=== PATIENT | male | born 1955 | race Caucasian/White ===

== ENCOUNTER 2021-05-27 22:37 | Emergency (ER) | payer OTHER ==
[2021-05-27 23:12] LABS: Absolute Neutrophil Ct (ANC) 4.93 (1.4-6.9); Basophil (Absolute #) 0 (0-0.4); Eosinophil % 5.7 % (0.00-5.0); Eosinophil (Absolute #) 0.44 (0-0.5); Hematocrit 43.6 % (42-50); Hemoglobin 14.4 gm/dl (12.5-18.0); Lymphocyte (Absolute #) 1.76 (1.0-4.6); Lymphocytes % 22.9 % (24.0-44.0); Mean Cell Volume 90.1 fl (78-100); Mean Corpuscular Hemoglobin 29.8 pg (26-32); Mean Platelet Volume 9.6 fl (7.5-11.0); Monocyte (Absolute #) 0.56 (0.0-1.3); Monocytes % 7.3 % (0.0-12.0); Neutrophil % 64.1 % (36.0-66.0); Platelet Count 207 K/mm3 (150-450); Red Blood Count 4.84 M/mm3 (4.1-5.6); Red Cell Distribution Width 14.2 % (11.5-14.0); White Blood Count 7.7 K/mm3 (4.0-10.5)
[2021-05-27 23:19] LABS: INR 1.07 (0.8-3.0); PROTIME 12.6 SECONDS (9.4-12.5)
[2021-05-27 23:22] LABS: PTT 32.8 SECONDS (25.1-36.5)
[2021-05-27 23:32] LABS: ALKALINE PHOSPHATASE 67 U/L (38-126); ANION GAP 9.3 MEQ/L (5-15); BLOOD UREA NITROGEN 18 mg/dL (9-20); CHLORIDE 100 mmol/L (98-107); Calcium 9.3 mg/dL (8.4-10.2); Carbon Dioxide 29 mmol/L (22-30); Creatinine 1 1.04 mg/dL (0.66-1.25); EST GLOMERULAR FILTRATION RATE > 60.0 ML/MIN; Glucose 93 mg/dL (74-106); NT PRO BNP 236 pg/mL (0-900); Potassium 3.9 mmol/L (3.5-5.1); SGOT/AST 31 U/L (17-59); SGPT/ALT 18 U/L (0-50); SODIUM 135 mmol/L (137-145)
--- NOTE | 2021-05-27 23:32 | ERPHSYRPT ---
- History of Present Illness Source: patient Exam Limitations: other (Poor historian) Patient Subjective Stated Complaint: pt states he has been increasingly short of breath today. started getting short of breath approx 4 days ago and has not had an inhaler to use at home. Triage Nursing Assessment: pt alert and oriented, answers questions approp. pt restless in bed. speech rapid. skin warm and dry. respirations nonlabored. lung sounds diminished with exp wheezing throughout. Physician History: 65 yo wm who smokes 2 ppd presents w dyspnea x 4 days which is worse tonight. Dyspnea worse w exertion. EMS gave 125mg IV Solumedrol/Duoneb in route w improvement. Pt states that he has a mild cough but denies fever/chest pain/nausea/vomiting/melena/hematochezia. He has had diarrhea x1. Pt has run out of all his meds. He has received first dose of CV19 vaccine. Timing/Duration: day(s) (4 days) Activities at Onset: rest Severity of Dyspnea-Max: moderate Severity of Dyspnea-Current: mild Possible Cause: occasional episodes Modifying Factors: Improves With: exertion Associated Symptoms: anxiety, cough, No chest pain/discomfort, No edema, No fever, No insomnia, No loss of appetite, No lightheadedness, No wheezing, No weakness, No ankle swelling, No chills, No hemoptysis, No calf pain, No dizziness, No heaviness, No heart racing, No lightheadedness, No leg swelling, No muscle spasms feet, No muscle spasms hands, No painful breathing, No productive cough, No sweating, No tightness, No tingling face, No tingling hands Allergies/Adverse Reactions: No Known Drug Allergies Allergy (Verified 05/27/21 23:13) Hx Tetanus, Diphtheria Vaccination/Date Given: Yes Hx Influenza Vaccination/Date Given: No Hx Pneumococcal Vaccination/Date Given: No Immunizations Up to Date: Yes Travel Risk - International Travel Have you traveled outside of the country in past 3 weeks: No - Coronavirus Screening Are you exhibiting any of the following symptoms?: No Close contact with a COVID-19 positive Pt in past 14-21 Days: No - Vaccine Status Have you recieved a Covid-19 vaccination: Yes 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 - Vaccination Dates Date of 2cond Vaccination (if applicable): na - Review of Systems Constitutional: No Symptoms, Malaise Eyes: No Symptoms Ears, Nose, & Throat: No Symptoms Respiratory: No Symptoms, Cough, Dyspnea, Dyspnea on Exertion (EDWARDS) Cardiac: No Symptoms Abdominal/Gastrointestinal: No Symptoms, Diarrhea (x1) Genitourinary Symptoms: No Symptoms Musculoskeletal: No Symptoms Skin: No Symptoms Neurological: No Symptoms Psychological: No Symptoms Endocrine: No Symptoms Hematologic/Lymphatic: No Symptoms Immunological/Allergic: No Symptoms - Past Medical History Pertinent Past Medical History: Yes Neurological History: No Pertinent History ENT History: No Pertinent History Cardiac History: Hypertension Respiratory History: Asthma, COPD Endocrine Medical History: No Pertinent History Musculoskeletal History: No Pertinent History GI Medical History: No Pertinent History History: No Pertinent History Psycho-Social History: No Pertinent History Male Reproductive Disorders: No Pertinent History - Past Surgical History Past Surgical History: No Neuro Surgical History: No Pertinent History Cardiac: No Pertinent History Respiratory: No Pertinent History Gastrointestinal: No Pertinent History Genitourinary: No Pertinent History Musculoskeletal: No Pertinent History Male Surgical History: No Pertinent History - Social History Smoking Status: Current every day smoker How long have you smoked: >40y Exposure to second hand smoke: Yes Drug Use: none Patient Lives Alone: No Significant Family History: no pertinent family hx - Nursing Vital Signs Nursing Vital Signs: Initial Vital Signs Temperature 98.3 F 05/27/21 22:38 Pulse Rate 89 05/27/21 22:38 Respiratory Rate 20 05/27/21 22:38 Blood Pressure 144/88 05/27/21 22:38 O2 Sat by Pulse Oximetry 95 05/27/21 22:38 Pain Scale Pain Intensity 8 Hypertensive - Physical Exam General Appearance: no apparent distress Eye Exam: PERRL/EOMI, eyes nml inspection Ears, Nose, Throat Exam: hearing grossly normal, normal ENT inspection, normal pharynx, No abnormal TM (R), No abnormal TM (L) Neck Exam: normal inspection, non-tender, supple, full range of motion, No Brudzinski, No Kernig's, No meningismus, No carotid bruit Respiratory Exam: airway intact, diminished breath sounds, wheezing, No respiratory distress Cardiovascular/Chest Exam: normal heart sounds, regular rate/rhythm, normal peripheral pulses, No murmur Abdominal/Gastrointestinal Exam: soft, normal bowel sounds, No tenderness Extremity Exam: non-tender, normal range of motion, normal inspection, normal capillary refill Peripheral Pulses Exam: carotid (R): 2+, carotid (L): 2+ Neurologic Exam: alert, oriented x 3, 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, 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, normal mood/affect, nml cerebellar function, nml station & gait, sensation nml Skin Exam: normal color, warm, dry Lymphatic Exam: No adenopathy SpO2 Interpretation: normal SpO2: 95 O2 Delivery: Room Air - Course Nursing assessment & vital signs reviewed: Yes EKG Interpreted by Me: RATE (NSR/R90/Normal QT-QTc/Tall T waves/No acute ST changes) Ordered Tests: Active Orders 24 hr Category Date Time Status 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0-10.5) K/mm3 RBC (4.1-5.6) M/mm3 Hgb (12.5-18.0) gm/dl Hct (42-50) % MCV (78-100) fl MCH (26-32) pg MCHC (32-36) g/dl RDW (11.5-14.0) % Plt Count (150-450) K/mm3 MPV (7.5-11.0) fl Gran % (36.0-66.0) % Eos # (Auto) (0-0.5) Absolute Lymphs (auto) (1.0-4.6) Absolute Monos (auto) (0.0-1.3) Lymphocytes % (24.0-44.0) % Monocytes % (0.0-12.0) % Eosinophils % (0.00-5.0) % Basophils % (0.0-0.4) % Absolute Granulocytes (1.4-6.9) Basophils # (0-0.4) PT 12.6 H (9.4-12.5) SECONDS INR 1.07 (0.8-3.0) APTT 32.8 (25.1-36.5) SECONDS Sodium 135 L (137-145) mmol/L Potassium 3.9 (3.5-5.1) mmol/L Chloride 100 (98-107) mmol/L Carbon Dioxide 29 (22-30) mmol/L Anion Gap 9.3 (5-15) MEQ/L BUN 18 (9-20) mg/dL Creatinine 1.04 (0.66-1.25) mg/dL Estimated GFR > 60.0 ML/MIN Glucose 93 (74-106) mg/dL Calcium 9.3 (8.4-10.2) mg/dL Total Bilirubin 0.70 (0.2-1.3) mg/dL AST 31 (17-59) U/L ALT 18 (0-50) U/L Alkaline Phosphatase 67 (38-126) U/L Troponin I < 0.012 (0.000-0.034) ng/mL NT-Pro-B Natriuret Pep 236 (0-900) pg/mL Serum Total Protein 7.0 (6.3-8.2) g/dL Albumin 4.0 (3.5-5.0) g/dL 05/27/21 Range/Units 23:00 WBC 7.7 (4.0-10.5) K/mm3 RBC 4.84 (4.1-5.6) M/mm3 Hgb 14.4 (12.5-18.0) gm/dl Hct 43.6 (42-50) % MCV 90.1 (78-100) fl MCH 29.8 (26-32) pg MCHC 33.0 (32-36) g/dl RDW 14.2 H (11.5-14.0) % Plt Count 207 (150-450) K/mm3 MPV 9.6 (7.5-11.0) fl Gran % 64.1 (36.0-66.0) % Eos # (Auto) 0.44 (0-0.5) Absolute Lymphs (auto) 1.76 (1.0-4.6) Absolute Monos (auto) 0.56 (0.0-1.3) Lymphocytes % 22.9 L (24.0-44.0) % Monocytes % 7.3 (0.0-12.0) % Eosinophils % 5.7 H (0.00-5.0) % Basophils % 0.0 (0.0-0.4) % Absolute Granulocytes 4.93 (1.4-6.9) Basophils # 0 (0-0.4) PT (9.4-12.5) SECONDS INR (0.8-3.0) APTT (25.1-36.5) SECONDS Sodium (137-145) mmol/L Potassium (3.5-5.1) mmol/L Chloride (98-107) mmol/L Carbon Dioxide (22-30) mmol/L Anion Gap (5-15) MEQ/L BUN (9-20) mg/dL Creatinine (0.66-1.25) mg/dL Estimated GFR ML/MIN Glucose (74-106) mg/dL Calcium (8.4-10.2) mg/dL Total Bilirubin (0.2-1.3) mg/dL AST (17-59) U/L ALT (0-50) U/L Alkaline Phosphatase (38-126) U/L Troponin I (0.000-0.034) ng/mL NT-Pro-B Natriuret Pep (0-900) pg/mL Serum Total Protein (6.3-8.2) g/dL Albumin (3.5-5.0) g/dL - Progress Progress: improved Progress Note: 05/27/21 23:50 Pt refused to stay for 3 hours troponin, states that he is much better. Risks explained to pt, including [place] and all complications of [place] 05/27/21 23:51 Pt refused Covid19 swab 05/28/21 00:24 05/28/21 01:31 05/28/21 01:32 Counseled pt/family regarding: lab results, diagnosis, need for follow-up, rad results - Departure Departure Disposition: Home Clinical Impression: COPD exacerbation, Bronchitis Condition: Stable Critical Care Time: No Referrals: NATE BILL [NON-STAFF PHY W/O PRIVILEGES] - Instructions: Chronic Obstructive Pulmonary Disease, Shortness of Breath (Dyspnea) (DC), Exacerbation of COPD (DC) Additional Instructions: Use your nebulizer or inhaler every 4 hours as needed Prednisone twice a day for 5 days Quit smoking Return to ER for increasing shortness of breath/Chest pain/Temperature greater than 100.5 Prescriptions: Albuterol Sulfate [Proventil Hfa] 6.7 gm IH Q4HPRN PRN #1 inh PRN Reason: Shortness Of Breath/Wheezing Prednisone 10 mg [Deltasone 10 mg] 10 mg PO BID 5 Days #10 tablet Doxycycline Monohydrate 100 mg PO BID 7 Days #14 tablet
[2021-05-27 23:49] VITALS: BP 130/88; PULSE 83
[2021-05-27 23:50] VITALS: O2SAT 95
--- NOTE | 2021-05-28 08:52 | XRAY ---
Indication: Dyspnea. Comparison: March 04, 2018. Portable chest remains hyperinflated and clear. Heart not enlarged. Bony thorax intact again with mild degenerative changes. No new/acute abnormalities.
== END 2021-05-28 00:21 | disposition home or self-care (01) ==
LOC: ED 22:37
DX: J44.0 Chronic obstructive pulmonary disease with (acute) lower respiratory infection (principal)
CPT/HCPCS: 36000; 36415; 71045; 80053; 83880; 84484; 85025; 85610; 85730; 93005; 93041; 99284

== ENCOUNTER 2021-11-14 00:24 | Emergency (ER) | payer OTHER, MEDICARE ==
[2021-11-14] MEDS ORDERED: TORAdol 30 mg Injection ONE (00:55)
[2021-11-14] MEDS: TORAdol 30 mg Injection IV ONE (00:57)
[2021-11-14 02:04] VITALS: BP 143/83; PULSE 77; O2SAT 95
--- NOTE | 2021-11-14 02:47 | ERPHSYRPT ---
- History of Present Illness Time Seen by Provider: 11/14/21 00:40 Source: patient Exam Limitations: no limitations Patient Subjective Stated Complaint: pt states "I have had this pain in my leg for the past week. I thought it would go away but it didn't." Triage Nursing Assessment: pt ambulated into the er with assist of cane; pt is axo x4; c/o rt leg pain; pt states 10/10 pain to RLE; pt states that he has taken 8 tylenol today with no relief; pt denies any trauma or injurt to RLE; pt states prior to arrival his rt leg gave out; pt has good cap refill to RLE; strong pedal pulse to rt foot; pt has tenderness to rt groin; pt states that he has not been able to afford his HTN medication; hypertension Physician History: Patient is a 66-year-old male presents to emergency department with complaints of pain to his right hip for the past 1 week. Patient states pain is worse when he bears weight pain improves with rest. Pain rated 10 out of 10 while weightbearing. Pain improved with rest. No trauma. No fever. No nausea vomiting or diaphoresis. No abdominal pain. No chest pain. No numbness tingling or weakness. No saddle anesthesia. No back pain. Symptoms are constant. Symptoms are moderate in intensity. Patient in no acute distress. Patient voices no other complaints or concerns at this time. Method of Injury: other (No observed injury) Occurred: last week Quality: constant Severity of Pain-Max: moderate Severity of Pain-Current: mild Lower Extremities Pain: hip: right Modifying Factors: Improves With: movement (Weightbearing) Associated Symptoms: none Allergies/Adverse Reactions: No Known Drug Allergies Allergy (Verified 11/14/21 00:25) Hx Tetanus, Diphtheria Vaccination/Date Given: No Hx Influenza Vaccination/Date Given: No Hx Pneumococcal Vaccination/Date Given: No Travel Risk - International Travel Have you traveled outside of the country in past 3 weeks: No - Coronavirus Screening Are you exhibiting any of the following symptoms?: No Close contact with a COVID-19 positive Pt in past 14-21 Days: No - Vaccine Status Have you recieved a Covid-19 vaccination: Yes 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 - Vaccination Dates Date of 2cond Vaccination (if applicable): unknown - Review of Systems Constitutional: No Symptoms, No Fever, No Chills Eyes: No Symptoms Ears, Nose, & Throat: No Symptoms Respiratory: No Symptoms, No Cough, No Dyspnea Cardiac: No Symptoms, No Chest Pain, No Edema, No Syncope Abdominal/Gastrointestinal: No Symptoms, No Abdominal Pain, No Nausea, No Vomiting, No Diarrhea Genitourinary Symptoms: No Symptoms, No Dysuria Musculoskeletal: No Symptoms, No Back Pain, No Neck Pain Skin: No Symptoms, No Rash Neurological: No Symptoms, No Dizziness, No Focal Weakness, No Sensory Changes Psychological: No Symptoms Endocrine: No Symptoms Hematologic/Lymphatic: No Symptoms Immunological/Allergic: No Symptoms All Other Systems: Reviewed and Negative - Past Medical History Pertinent Past Medical History: Yes Neurological History: No Pertinent History ENT History: No Pertinent History Cardiac History: Hypertension Respiratory History: Asthma, COPD Endocrine Medical History: No Pertinent History Musculoskeletal History: No Pertinent History GI Medical History: No Pertinent History History: No Pertinent History Psycho-Social History: No Pertinent History Male Reproductive Disorders: No Pertinent History - Past Surgical History Past Surgical History: No Neuro Surgical History: No Pertinent History Cardiac: No Pertinent History Respiratory: No Pertinent History Gastrointestinal: No Pertinent History Genitourinary: No Pertinent History Musculoskeletal: No Pertinent History Male Surgical History: No Pertinent History - Social History Smoking Status: Current every day smoker How long have you smoked: >40y Exposure to second hand smoke: Yes Drug Use: none Patient Lives Alone: No Significant Family History: no pertinent family hx - Nursing Vital Signs Nursing Vital Signs: Initial Vital Signs Temperature 97.6 F 11/14/21 00:27 Pulse Rate 86 11/14/21 00:27 Respiratory Rate 18 11/14/21 00:27 Blood Pressure 180/101 11/14/21 00:27 O2 Sat by Pulse Oximetry 96 11/14/21 00:27 Pain Scale Pain Intensity 4 - Physical Exam General Appearance: no apparent distress, alert Eyes, Ears, Nose, Throat Exam: normal ENT inspection, TMs normal, pharynx normal, moist mucous membranes Neck Exam: normal inspection, non-tender, supple, full range of motion Cardiovascular/Respiratory Exam: chest non-tender, normal breath sounds, regular rate/rhythm, no respiratory distress Gastrointestinal/Abdominal Exam: non-tender, guarding Back Exam: normal inspection, normal range of motion, No vertebral tenderness Hips Exam: right: pain (Rt. hip pain to log roll and heel tap), other (Right lower extremities neurovascular intact distally. Compartments are soft. Cap refill less than 2 seconds.) Legs Exam: bilateral leg: non-tender, normal inspection, normal range of motion, no evidence of injury Knees Exam: bilateral knee: non-tender, normal inspection, normal range of motion, no evidence of injury Ankle Exam: bilateral ankle: non-tender, normal inspection, normal range of motion, no evidence of injury Foot Exam: bilateral foot: non-tender, normal inspection, normal range of motion, no evidence of injury Neuro/Tendon Exam: normal sensation, normal motor functions, normal tendon functions Mental Status Exam: alert, oriented x 3, cooperative Skin Exam: normal color, warm, dry SpO2 Interpretation: normal SpO2: 95 O2 Delivery: Room Air - Course Nursing assessment & vital signs reviewed: Yes Ordered Tests: Active Orders 24 hr Category Date Time Status AMA [Release AMA] OM.NOW Care 11/14/21 02:40 Ordered PELVIS WITHOUT CONTRAST [CT] Stat Exams 11/14/21 00:53 Taken Medication Summary Discontinued Medications Generic Name Dose Route Start Last Admin Trade Name Bette PRN Reason Stop Dose Admin Ketorolac Tromethamine 30 mg 11/14/21 00:52 11/14/21 00:57 Ketorolac Tromethamine 30 Mg/Ml Inj IV 11/14/21 00:53 30 mg STAT ONE Administration Ketorolac Tromethamine Confirm 11/14/21 00:55 Ketorolac Tromethamine 30 Mg/Ml Inj Administered 11/14/21 00:56 Dose 30 mg .ROUTE .STK-MED ONE - Progress Progress: improved Progress Note: 11/14/21 02:48 Patient reassessed. Pain improved after administration of Toradol. A CT scan of the pelvis to observe the right hip was ordered. Patient refused to stay for the result. Patient states his was in the parking lot and he needed to leave. Patient states he will follow up with Dr. Lamar within 48 hours for evaluation. Patient left AMA. Patient is of sound mind. Patient is appropriate to make informed and independent medical decisions. Patient understands that leaving AGAINST MEDICAL ADVICE can result in delayed diagnosis, increased risk of morbidity, mortality, short and long-term disability including . In spite of these risks, patient has decided to leave AGAINST MEDICAL ADVICE. Patient understands that he may return to our ED at any point if he reconsiders. Patient agrees to follow-up with his primary care doctor within 48 hours for reevaluation. Patient voices no other complaints or concerns at this time. We will release patient AGAINST MEDICAL ADVICE per their request. Portions of this note were created with voice recognition technology. There may be grammatical, spelling, punctuation or sound alike errors Counseled pt/family regarding: diagnosis, need for follow-up, rad results - Departure Departure Disposition: AMA Clinical Impression: Hip pain Condition: Stable Critical Care Time: No Referrals: EVELINA LAMAR [Primary Care Provider] - Follow up/PCP as directed Additional Instructions: Discharge/Care Plan ALIDA ZELAYA was seen on 11/14/21 in the Emergency Room. The patient was counseled regarding Diagnosis,Lab results, Imaging studies, need for follow up and when to return to the Emergency Room. Prescriptions given: Discharge Note I have spoken with the patient and/or caregivers. I have explained the patient's condition, diagnosis and treatment plan based on the information available to me at this time. I have answered the patient's and/or caregiver's questions and addressed any concerns. The patient and/or caregivers have as good understanding of the patient's diagnosis, condition and treatment plan as can be expected at this point. The vital signs have been stable. The patient's condition is stable and appropriate for discharge from the emergency department. The patient will pursue further outpatient evaluation with the primary care physician or other designated or consulting physician as outlined in the discharge instructions. The patient and/or caregivers are agreeable to this plan of care and follow-up instructions have been explained in detail. The patient and/or caregivers have received these instruction. The patient/and or caregivers are aware that any significant change in condition or worsening of symptoms should prompt an immediate return to this or the closest emergency department or call 911.
--- NOTE | 2021-11-14 09:27 | XRAY ---
Indication: Right hip pain 1 week. Fracture. Multiple contiguous axial images obtained through the pelvis with special attention to the osseous structures. Sagittal and coronal reformatted images obtained. Comparison: None Osseous structures are demineralized. Mild/moderate degenerative changes of both hips as evidenced by joint space narrowing, bony sclerosis, and tiny subcortical cysts. No acute fracture, suspicious bony lesions, or osseous destructive process. Mild degenerative changes of both SI joints and visualized lower lumbar spine. Visualized noncontrasted soft tissues demonstrates mild scattered vascular calcifications and sigmoid diverticulosis. No suspicious solid/cystic soft tissue mass or abnormal fluid collection. Impression: 1. Negative acute fracture/dislocation. 2. Osteopenia and degenerative changes as detailed. 3. Incidental arteriosclerotic disease and sigmoid diverticulosis. Comment: Preliminary interpretation made by [facility]. No critical discrepancy.
== END 2021-11-14 02:45 | disposition left against medical advice (07) ==
LOC: ED 00:24
DX: M25.551 Pain in right hip (principal); I10 Essential (primary) hypertension; J44.9 Chronic obstructive pulmonary disease, unspecified; Z72.0 Tobacco use
CPT/HCPCS: 72192; 96374; 99284; J1885

== ENCOUNTER 2024-10-30 21:24 | Emergency (ER) | payer MEDICARE, OTHER ==
[2024-10-30 22:04] VITALS: RESP 22; TEMP 98.8; O2SAT 97
--- NOTE | 2024-10-30 22:28 | ERPHSYRPT ---
- History of Present Illness Time Seen by Provider: 10/30/24 22:02 Source: patient Exam Limitations: clinical condition Patient Subjective Stated Complaint: pt states that he was carving a wood and cut his hand Triage Nursing Assessment: pt ambulated into the er; pt is axo x4; pt is restless, mumbling; c/o laceration; laceration measures 3 cm x 0.5 cm to left index finger; moderate bleeding present to left finger; skin PDW; no respiratory distress present; tachycardic Severity: mild Allergies/Adverse Reactions: No Known Drug Allergies Allergy (Verified 10/30/24 21:49) Hx Tetanus, Diphtheria Vaccination/Date Given: Yes Hx Influenza Vaccination/Date Given: No Hx Pneumococcal Vaccination/Date Given: No Travel Risk - International Travel Have you traveled outside of the country in past 3 weeks: No - Emerging Infectious Disease Are you exhibiting symptoms associated with any current EIDs: No - Review of Systems Constitutional: No Symptoms Eyes: No Symptoms Ears, Nose, & Throat: No Symptoms Respiratory: No Symptoms Cardiac: No Symptoms Abdominal/Gastrointestinal: No Symptoms Genitourinary Symptoms: No Symptoms Musculoskeletal: No Symptoms - Past Medical History Pertinent Past Medical History: Yes Neurological History: No Pertinent History ENT History: No Pertinent History Cardiac History: Hypertension Respiratory History: Asthma, COPD Endocrine Medical History: No Pertinent History Musculoskeletal History: No Pertinent History GI Medical History: No Pertinent History History: No Pertinent History Psycho-Social History: No Pertinent History Male Reproductive Disorders: No Pertinent History - Past Surgical History Past Surgical History: No Neuro Surgical History: No Pertinent History Cardiac: No Pertinent History Respiratory: No Pertinent History Gastrointestinal: No Pertinent History Genitourinary: No Pertinent History Musculoskeletal: No Pertinent History Male Surgical History: No Pertinent History Significant Family History: no pertinent family hx - Social History Smoking Status: Current every day smoker How long have you smoked: >40y Exposure to second hand smoke: Yes Drug Use: marijuana - Social Determinants of Health Will the patient participate in the screening: Yes Do you worry about a steady place to live?: Yes Do you have any problems with any of the following?: No known problems In the past 12 months,have you had to go without utilities?: Yes Transportation Issues: Yes Has anyone in your support network made you feel unsafe?: Yes Have you or anyone in your house had to go w/o enough food: Yes Comment: pt states that he is homeless - Nursing Vital Signs Nursing Vital Signs: Initial Vital Signs Temperature 98.8 F 10/30/24 21:49 Pulse Rate 101 H 10/30/24 21:49 Respiratory Rate 22 10/30/24 21:49 Blood Pressure 134/91 10/30/24 21:49 O2 Sat by Pulse Oximetry 97 10/30/24 21:49 Pain Scale Pain Intensity 9 - Physical Exam General Appearance: no apparent distress Eye Exam: PERRL/EOMI Ears, Nose, Throat Exam: normal ENT inspection Respiratory Exam: normal breath sounds Cardiovascular Exam: regular rate/rhythm Gastrointestinal/Abdomen Exam: soft Skin Exam: laceration (1.2 cm laceration over the left hand extensor surface at the base of the index finger ) SpO2: 97 Procedures - Laceration/Wound Repair Left Posterior Hand Time of Procedure: 22:17 Wound Location: Left Wound Length (cm): 1.2 Wound's Depth, Shape: superficial Wound Explored: clean Irrigated: No Hibiclens Prep: Yes Anesthesia: local, 1% Lidocaine Volume Anesthetic (ccs): 5 Wound Debrided: minimal Wound Repaired With: sutures Suture Size/Type: 3-0, prolene Number of Sutures: 5 Layer Closure?: No Sterile Dressing Applied?: No Splint Applied?: No Sling Applied?: No Ordered Tests: Active Orders 24 hr Category Date Time Status ACO SDOH Referral ONCE Cons 10/30/24 22:04 Active - Progress Progress Note: Patient was seen and evaluated for laceration to the left hand he states he cut it accidentally while cooking with a kitchen knife he denies any other injury he denies any numbness or tingling this area was cleaned with Hibiclens and then local anesthesia with 1% lidocaine administered and the laceration reapproximated using a running interlocking suture of 3-0 Prolene with good approximation and hemostasis patient tolerated the procedure well and has good range of motion before and after the procedure. Patient was given wound care precautions he will be discharged home with Keflex 10/30/24 22:26 Medical Desision Making - Discussion of managment Agreed on:: need for follow-up Will see patient: In office - Departure Departure Disposition: Home Clinical Impression: Laceration of hand Condition: Stable Critical Care Time: No Referrals: EVELINA DAY [Primary Care Provider] - Follow up/PCP as directed Prescriptions: Cephalexin Mh 500 mg [Keflex 500 mg] 500 mg PO BID #14 cap
[2024-10-30 22:44] VITALS: BP 113/84; PULSE 97
== END 2024-10-30 23:07 | disposition home or self-care (01) ==
LOC: ED 21:24
DX: S61.412A Laceration without foreign body of left hand, initial encounter (principal); W26.0XXA Contact with knife, initial encounter; Y93.G1 Activity, food preparation and clean up; I10 Essential (primary) hypertension; Z79.899 Other long term (current) drug therapy; Z72.0 Tobacco use; Z59.00 Homelessness unspecified; Z59.12 Inadequate housing utilities; Z59.82 Transportation insecurity; Z59.48 Other specified lack of adequate food; Z58.89 Other problems related to physical environment
CPT/HCPCS: 12001; 99283

== ENCOUNTER 2024-12-28 17:28 | Emergency (ER) | payer OTHER ==
--- NOTE | 2024-12-28 17:47 | ERPHSYRPT ---
- History of Present Illness Time Seen by Provider: 12/28/24 17:47 Source: patient, EMS, old records Exam Limitations: no limitations Physician History: This is a 69-year-old white male patient of Dr. Lamar who presents to the emergency department by the paramedics after complaining that he fell from the height of a chair (he states 12 inches) when attempting to sit down. After he fell, he has had severe lower back pain, bilateral hip pain and bilateral knee pain. He has a history of alcohol abuse but he denies illicit drug use and he denies alcohol use. He specifically states he did not hit his head. He has no complaints of pain anywhere else. Patient arrives on a backboard with a c- collar in place. Patient has a history of hypertension, COPD and asthma. He is not taking any of his medications. He denies chest pain and he denies shortness of breath. Occurred: just prior to arrival Reason for Fall: unknown (Unknown but it appears he missed the seat he was trying to sit on) Injuries/Pain Location: pelvis (Bilateral hips), lower extremity (Bilateral knees), lower (Lumbar region of his back) Loss of Consciousness: no loss of consciousness Severity of Pain-Max: moderate Severity of Pain-Current: mild Modifying Factors: Improves With: movement Associated Symptoms (Fall): back pain (Lumbar level), extremity injury (Bilateral knees and bilateral hips) Allergies/Adverse Reactions: No Known Drug Allergies Allergy (Verified 10/30/24 21:49) Home Medications: No Reportable Medications [No Reported Medications] 12/28/24 [History] Hx Tetanus, Diphtheria Vaccination/Date Given: Yes Hx Influenza Vaccination/Date Given: No Hx Pneumococcal Vaccination/Date Given: No Travel Risk - International Travel Have you traveled outside of the country in past 3 weeks: No - Emerging Infectious Disease Are you exhibiting symptoms associated with any current EIDs: No - Review of Systems Constitutional: No Symptoms Eyes: No Symptoms Ears, Nose, & Throat: No Symptoms Respiratory: No Symptoms Cardiac: No Symptoms Abdominal/Gastrointestinal: No Symptoms Genitourinary Symptoms: No Symptoms Musculoskeletal: Back Pain (Low back pain lumbar region), Fall, Joint Pain (Bilateral hips and bilateral knees) Skin: No Symptoms Neurological: No Symptoms Psychological: No Symptoms Endocrine: No Symptoms Hematologic/Lymphatic: No Symptoms Immunological/Allergic: No Symptoms All Other Systems: Reviewed and Negative - Past Medical History Pertinent Past Medical History: Yes Neurological History: No Pertinent History ENT History: No Pertinent History Cardiac History: Hypertension Respiratory History: Asthma, COPD Endocrine Medical History: No Pertinent History Musculoskeletal History: No Pertinent History GI Medical History: No Pertinent History History: No Pertinent History Psycho-Social History: No Pertinent History Male Reproductive Disorders: No Pertinent History - Past Surgical History Past Surgical History: No Neuro Surgical History: No Pertinent History Cardiac: No Pertinent History Respiratory: No Pertinent History Gastrointestinal: No Pertinent History Genitourinary: No Pertinent History Musculoskeletal: No Pertinent History Male Surgical History: No Pertinent History Significant Family History: no pertinent family hx - Social History Smoking Status: Current every day smoker How long have you smoked: >40y Exposure to second hand smoke: Yes Drug Use: marijuana - Social Determinants of Health Will the patient participate in the screening: Yes Do you worry about a steady place to live?: Yes In the past 12 months,have you had to go without utilities?: Yes Transportation Issues: Yes Has anyone in your support network made you feel unsafe?: Yes Have you or anyone in your house had to go w/o enough food: Yes Comment: pt states that he is homeless - Nursing Vital Signs Nursing Vital Signs: Initial Vital Signs Temperature 98.6 F 12/28/24 17:29 Pulse Rate 96 H 12/28/24 17:29 Respiratory Rate 18 12/28/24 17:29 Blood Pressure 162/91 12/28/24 17:29 O2 Sat by Pulse Oximetry 94 L 12/28/24 17:29 Pain Scale Pain Intensity 8 - Zach Coma Score Best Eye Response (Zach): (4) open spontaneously Best Verbal Response (Martelle): (5) oriented Best Motor Response (Zach): (6) obeys commands Martelle Total: 15 - Physical Exam General Appearance: no apparent distress, alert, anxiety Head Injury: no evidence of injury Eye Exam: PERRL/EOMI, eyes nml inspection ENT Exam: airway nml, nml ext.inspection Neck Exam: supple, trachea midline, full range of motion, normal alignment, normal inspection, c-collar in place, other (I cleared his cervical spine clinically. He has no pain when palpating the cervical vertebrae or the pair spinous muscles bilaterally.) Respiratory/Chest Exam: normal breath sounds, No chest tenderness, No respiratory distress, No ecchymosis, No crepitus Cardiovascular Exam: normal heart sounds, regular rate/rhythm Gastrointestinal Exam: soft, normal bowel sounds, No tenderness, No guarding Rectal Exam: No not done Back Exam: normal inspection, normal range of motion, muscle spasm (There is bilateral lumbar level paraspinous muscle tenderness to palpation), No CVA tenderness, No vertebral tenderness (No vertebral tenderness to palpation) Extremity Exam: normal inspection, normal range of motion, pelvis stable, No deformities Neurologic Exam: alert, oriented x 3, 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, 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, sensation nml Skin Exam: normal color, warm, dry SpO2 Interpretation: normal O2 Delivery: Room Air - Course Nursing assessment & vital signs reviewed: Yes Ordered Tests: Active Orders 24 hr Category Date Time Status AMA [Release AMA] OM.NOW Care 12/28/24 19:32 Ordered KNEE (1 OR 2 VIEW) Stat Exams 12/28/24 17:42 Taken KNEE (1 OR 2 VIEW) Stat Exams 12/28/24 17:42 Taken LUMBAR SPINE W/O [CT] Stat Exams 12/28/24 17:40 Taken PELVIS WITHOUT CONTRAST [CT] Stat Exams 12/28/24 17:41 Taken Medication Summary Discontinued Medications Generic Name Dose Route Start Last Admin Trade Name Armaanq PRN Reason Stop Dose Admin Orphenadrine Citrate 60 mg 12/28/24 17:59 12/28/24 18:11 Orphenadrine Citrate 60 Mg/2 Ml Vial IM 12/28/24 18:00 Not Given STAT ONE Orphenadrine Citrate 60 mg 12/28/24 18:04 12/28/24 18:06 Orphenadrine Citrate 60 Mg/2 Ml Vial IV 12/28/24 18:05 60 mg STAT ONE Administration Orphenadrine Citrate Confirm 12/28/24 18:04 Orphenadrine Citrate 60 Mg/2 Ml Vial Administered 12/28/24 18:05 Dose 60 mg .ROUTE .STK-MED ONE - Progress Progress: improved, pain not gone completely Progress Note: 12/28/24 17:56 My medical decision making of the assignment of low to moderate complexity is based on review of the patient's past medical history, review of the patient's medication list, review of patient drug allergy list, history present illness and physical findings on examination. The workup in the patient includes CT scan of the lumbar spine and CT scan of the pelvis to include mid level femurs bilaterally. In addition, we will order bilateral knee x-rays. Differential diagnosis includes but is not limited to fracture right knee, dislocation right knee, fracture left knee, dislocation left knee, low back fracture/subluxation, bilateral hip fracture/dislocation, contusions, right knee sprain, left knee sprain, muscle spasm 12/28/24 19:32 The patient wants to leave AGAINST MEDICAL ADVICE. He does not want to wait for the results of the studies. He got up and he is standing and moving without any difficulty. He understands that there are risks that could lead to worsening condition and even to . He understands. He is awake he is alert and he is oriented. He will sign out AGAINST MEDICAL ADVICE. Counseled pt/family regarding: diagnosis, need for follow-up, rad results Medical Desision Making - Independent Historian Additional History obtained from: [employer] Consultant/EMT - Risk of complications Low Risk: Low risk of morbidity from additional dx testing or treatment - Departure Departure Disposition: AMA Clinical Impression: Fall Condition: Stable Critical Care Time: No Referrals: EVELINA LAMAR [Primary Care Provider, [facility]] - Follow up/PCP as directed Additional Instructions: Use Tylenol and ibuprofen for pain control. If you change your mind about further workup and finding out about your radiographic studies and workup results, return to the emergency department immediately
[2024-12-28] MEDS ORDERED: Norflex 60 MG/2 ML ONE (18:04)
[2024-12-28] MEDS: Norflex 60 MG/2 ML IM ONE (18:05)
[2024-12-28] MEDS: Norflex 60 MG/2 ML IV ONE (18:06)
[2024-12-28 18:07] VITALS: TEMP 98.6
[2024-12-28 18:37] VITALS: BP 173/99; PULSE 89; RESP 33; O2SAT 95
--- NOTE | 2024-12-29 08:42 | XRAY ---
Indication: Pain following fall/injury. Multiple contiguous axial images obtained through the lumbar spine. Sagittal and coronal reformatted images obtained. Comparison: CT abdomen/pelvis February 08, 2009 Study is slightly degraded by diffuse motion artifact even with repeat CT. Axial images grossly negative for acute fracture or suspicious bony lesions. Again mild L4-L5 broad-based disc bulge and mild/moderate L5-S1 annular disc osteophyte complex producing spinal canal and bilateral foraminal narrowing. Facets are symmetric. Sagittal and coronal reformatted images again demonstrates normal lumbar alignment with L5-S1 disc space narrowing. No acute compression fracture or subluxation. Visualized noncontrasted soft tissues demonstrates worsening mild/moderate scattered arteriosclerotic disease with new distal AAA measuring 3.5 x 3.0 cm. Also worsening scattered sigmoid diverticulosis. Impression: 1. Motion artifact. 2. Again L4-S1 degenerative disc disease as detailed. 3. Worsening arteriosclerotic disease with new distal AAA and worsening sigmoid diverticulosis. 4. No gross acute findings on this noncontrast exam.
--- NOTE | 2024-12-29 08:46 | XRAY ---
Indication: Pain following fall/injury. Multiple contiguous axial images obtained through the pelvis with special attention to the osseous structures. Sagittal and coronal reformatted images obtained. Comparison: November 14, 2021 Study is degraded by diffuse motion/respiration artifact. Osseous structures remain demineralized. Right hip demonstrates worsening moderate/advanced degenerative arthropathy is evidence by joint space loss, bony sclerosis, bony spurring, and subcortical cysts. Stable mild left degenerative arthropathy. Lower lumbar degenerative spondylosis reported separately. No gross acute fracture or suspicious bony lesions. Visualized noncontrasted soft tissues again demonstrates scattered sigmoid diverticulosis and scattered arteriosclerotic disease with small distal AAA. No focal solid/cystic soft tissue mass or abnormal fluid collection. Impression: 1. Motion artifact limits exam. 2. No gross acute fracture. 3. Chronic findings including osteopenia, bilateral hip degenerative arthropathy, sigmoid diverticulosis, and arteriosclerotic disease with distal AAA..
--- NOTE | 2024-12-29 08:48 | XRAY ---
Indication: Pain following fall. Comparison: None 2 view right knee demonstrates osteopenia, minimal medial joint space narrowing, and small suprapatella spurring. No acute bony, articular, or soft tissue abnormalities.
--- NOTE | 2024-12-29 08:48 | XRAY ---
Indication: Pain following fall. Comparison: None 2 view left knee demonstrates osteopenia, minimal medial joint space narrowing, and small suprapatella spurring. No acute bony, articular, or soft tissue abnormalities.
== END 2024-12-28 19:35 | disposition left against medical advice (07) ==
LOC: ED 17:28
DX: Z04.3 Encounter for examination and observation following other accident (principal); M54.50 Low back pain, unspecified; M25.551 Pain in right hip; M25.552 Pain in left hip; M25.561 Pain in right knee; M25.562 Pain in left knee; Z72.0 Tobacco use; Z59.00 Homelessness unspecified; Z59.82 Transportation insecurity; Z59.41 Food insecurity; Z58.89 Other problems related to physical environment
CPT/HCPCS: 72131; 72192; 73560; 96374; 99284; J2360

== ENCOUNTER 2025-01-07 01:22 | Emergency (ER) | payer OTHER | END 2025-01-07 01:25 | disposition left against medical advice (07) | LOC: ED 01:22 | DX: Z53.21 Procedure and treatment not carried out due to patient leaving prior to being seen by health care provider (principal) ==